=== PATIENT | male | born 1960 | race Caucasian/White ===

== ENCOUNTER 2018-09-17 10:48 | Inpatient (IN) | payer OTHER ==
[2018-09-17] VITALS (20 sets, daily range): BP systolic 96–130; BP diastolic 37–76
[~2018-09-17] VITALS: Ht 180.3 cm; Wt 65.2 kg
[2018-09-17 11:11] LABS: HEMATOCRIT 56.2 % (42.0-52.0); HEMOGLOBIN 15.6 gm/dL (14.0-18.0); MCH 31.7 pg (26.0-34.0); MCHC 27.8 g/dL (28.0-37.0); MCV 114.1 fL (80.0-100.0); PLATELET COUNT 306 thou/uL (150-400); RBC 4.92 mil/uL (4.50-6.00); RDW 16.1 % (10.5-14.5); WBC 22.5 thou/uL (4.0-11.0)
[2018-09-17 11:30] LABS: ALBUMIN 3.7 g/dL (3.4-5.0); BUN 57 mg/dL (7-18); CALCIUM 11.3 mg/dL (8.5-10.1); CHLORIDE 93 mmol/L (98-107); DIRECT BILIRUBIN 0.1 mg/dL (<0.1-0.3); SGOT 11 U/L (15-37); SGPT 20 U/L (30-65); SODIUM 136 mmol/L (136-145); TOTAL BILIRUBIN 0.5 mg/dL (<0.1-1.0); TOTAL PROTEIN 7.4 g/dL (6.4-8.2); TROPONIN-I <0.06 ng/mL (<0.06)
[2018-09-17 11:33] LABS: ANION GAP 34 mmol/L (7-16)
[2018-09-17 11:45] LABS: ABSOLUTE NEUTROPHILS 19.1 thou/uL (1.4-8.2); MACROCYTES 2+; METAMYELOCYTES 2 %; PLATELET ESTIMATE NORMAL
[2018-09-17 11:49] LABS: CO2 9 mmol/L (21-32); GLUCOSE 1823 mg/dL (74-106)
[2018-09-17 12:31] LABS: HCO3 3.4 mmol/L (22.0-26.0); PCO2 15.2 mmHg (35.0-45.0); PO2 143.3 mmHg (80.0-100.0); pH 6.964 (7.360-7.450); sO2 97.3 % (92.0-98.0)
[2018-09-17 13:04] LABS: URINE BILIRUBIN NEGATIVE (Negative); URINE BLOOD 1+ (Negative); URINE CLARITY CLEAR; URINE COLOR YELLOW; URINE GLUCOSE-RANDOM* 3+ (Negative); URINE KETONES 2+ (Negative); URINE LEUKOCYTES-REFLEX NEGATIVE (Negative); URINE NITRITE-REFLEX NEGATIVE (Negative); URINE PROTEIN (DIPSTICK) 1+ (Negative); URINE UROBILINOGEN 0.2 E.U./dl (0.2-1.0)
[2018-09-17 13:12] LABS: AMP/METHAMP Negative (Negative); BARBITURATES Negative (Negative); BENZODIAZEPINES Negative (Negative); COCAINE Negative (Negative); METHADONE Negative (Negative); OPIATES Negative (Negative); PCP Negative (Negative)
[2018-09-17 13:14] LABS: CASTS None Seen /LPF (None Seen); CRYSTALS None Seen /LPF (None Seen); HYALINE CASTS 4-10 Moderate /LPF (None Seen); SQUAMOUS 0-3 Few /LPF (0-3)
[2018-09-17 13:15] LABS: AMORPHOUS URATES Many /LPF (None Seen); BACTERIA-REFLEX None Seen /HPF (None Seen); URINE RBC 0-2 Rare /HPF (0-2); URINE WBC-REFLEX 0-5 Rare /HPF (0-5)
[2018-09-17 13:28] LABS: MAGNESIUM 3.9 mg/dL (1.8-2.4)
[2018-09-17 13:43] LABS: PHOSPHORUS 13.8 mg/dL (2.5-4.9)
--- NOTE | 2018-09-17 13:48 | EKG ---
[place] [address] [facility] [address] ELECTROCARDIOGRAM REPORT Name: EULALIO COSTELLO Room #: 170-4 ADM IN M.R.#: [id number] Admission: 09/17/18 Attend Phys: Alan Mullen MD Discharge: Date of : 60 Report #: [id number] THIS REPORT FOR: //name// [facility] ED Test Date: 2018-09-17 Test Time: 12:11:34 Pat Name: EULALIO COSTELLO Department: Room: 170 Gender: M Principal Accounts Clerk: CANDY : 1960 Requested By: Wili Lee Order Number: [id number] MD: Timothy Schumacher Measurements Intervals [place] Rate: 90 P: 74 NE: 167 QRS: 44 QRSD: 100 T: 52 QT: 414 QTc: 507 Interpretive Statements Sinus rhythm LAE, consider biatrial enlargement Minimal ST depression, diffuse leads Prolonged QT interval No previous ECG available for comparison Electronically Signed On 09-17-2018 13:48:31 CDT by Timothy Schumacher [email or web address] <ELECTRONICALLY SIGNED> By: Timothy Schumacher MD 09/17/18 1348 1211 1211 Timothy Schumacher MD /ROBERT
[2018-09-17 14:12] LABS: CALCIUM 9.6 mg/dL (8.5-10.1); CREATININE 2.7 mg/dL (0.7-1.3)
[2018-09-17 14:22] LABS: POTASSIUM 4.8 mmol/L (3.5-5.1)
[2018-09-17 18:48] LABS: CALCIUM 10.5 mg/dL (8.5-10.1); CREATININE 2.4 mg/dL (0.7-1.3); POTASSIUM 4.4 mmol/L (3.5-5.1)
[2018-09-17 22:25] LABS: ALBUMIN 3.5 g/dL (3.4-5.0); CALCIUM 10.8 mg/dL (8.5-10.1); CREATININE 2.2 mg/dL (0.7-1.3); MAGNESIUM 3.2 mg/dL (1.8-2.4); PHOSPHORUS 2.9 mg/dL (2.5-4.9); POTASSIUM 4.9 mmol/L (3.5-5.1)
[2018-09-18] VITALS (34 sets, daily range): BP systolic 105–135; BP diastolic 59–76
[2018-09-18 02:31] LABS: CALCIUM 9.8 mg/dL (8.5-10.1); CREATININE 1.8 mg/dL (0.7-1.3); MAGNESIUM 2.8 mg/dL (1.8-2.4); PHOSPHORUS 2.8 mg/dL (2.5-4.9); POTASSIUM 4.5 mmol/L (3.5-5.1)
[2018-09-18 06:14] LABS: ALBUMIN 2.9 g/dL (3.4-5.0); CALCIUM 9.6 mg/dL (8.5-10.1); CREATININE 1.6 mg/dL (0.7-1.3); MAGNESIUM 2.6 mg/dL (1.8-2.4); PHOSPHORUS 2.7 mg/dL (2.5-4.9)
[2018-09-18 06:15] LABS: POTASSIUM 4.9 mmol/L (3.5-5.1)
[2018-09-18 10:59] LABS: ALBUMIN 2.8 g/dL (3.4-5.0); CALCIUM 9.4 mg/dL (8.5-10.1); CREATININE 1.5 mg/dL (0.7-1.3); MAGNESIUM 2.4 mg/dL (1.8-2.4); PHOSPHORUS 2.9 mg/dL (2.5-4.9); POTASSIUM 3.8 mmol/L (3.5-5.1)
[2018-09-18 14:54] LABS: ALBUMIN 2.5 g/dL (3.4-5.0); CALCIUM 8.8 mg/dL (8.5-10.1); CREATININE 1.2 mg/dL (0.7-1.3); MAGNESIUM 2.2 mg/dL (1.8-2.4); PHOSPHORUS 3.3 mg/dL (2.5-4.9)
[2018-09-18 14:57] LABS: POTASSIUM 4.4 mmol/L (3.5-5.1)
[2018-09-18 17:20] LABS: HEMATOCRIT 45.4 % (42.0-52.0); HEMOGLOBIN 14.9 gm/dL (14.0-18.0); MCH 31.9 pg (26.0-34.0); MCHC 32.8 g/dL (28.0-37.0); RBC 4.66 mil/uL (4.50-6.00); RDW 14.1 % (10.5-14.5)
[2018-09-18 17:21] LABS: MCV 97.4 fL (80.0-100.0); PLATELET COUNT 199 thou/uL (150-400)
[2018-09-18 18:05] LABS: BE(vivo) -6.6 mmol/L (-2 to +3); HCO3 16.3 mmol/L (22.0-26.0); PCO2 26.3 mmHg (35.0-45.0); pH 7.411 (7.360-7.450); sO2 96.2 % (92.0-98.0)
[2018-09-18 18:08] LABS: ALBUMIN 2.5 g/dL (3.4-5.0); CALCIUM 8.9 mg/dL (8.5-10.1); CREATININE 1.3 mg/dL (0.7-1.3); MAGNESIUM 2.2 mg/dL (1.8-2.4); PHOSPHORUS 3.3 mg/dL (2.5-4.9); POTASSIUM 4.5 mmol/L (3.5-5.1)
[2018-09-18 18:11] LABS: ABSOLUTE NEUTROPHILS 12.9 thou/uL (1.4-8.2); METAMYELOCYTES 1 %
[2018-09-18 18:12] LABS: LARGE PLATELETS OCCASIONAL
[2018-09-18 18:14] LABS: ANISOCYTOSIS SLIGHT
[2018-09-18 22:35] LABS: ALBUMIN 2.5 g/dL (3.4-5.0); CALCIUM 8.7 mg/dL (8.5-10.1); CREATININE 1.1 mg/dL (0.7-1.3); MAGNESIUM 2.1 mg/dL (1.8-2.4); PHOSPHORUS 2.5 mg/dL (2.5-4.9); POTASSIUM 3.8 mmol/L (3.5-5.1)
[2018-09-19] VITALS (23 sets, daily range): BP systolic 114–146; BP diastolic 59–83
[2018-09-19 05:36] LABS: ESTIMATED AVERAGE GLUCOSE > 398 mg/dL (()); GLYCOHEMOGLOBIN (HGB A1C) > 15.5 % (4.8-5.6)
[2018-09-19 05:57] LABS: BASOPHILS 0.5 % (0.0-2.0); HEMOGLOBIN 13.6 gm/dL (14.0-18.0); RBC 4.24 mil/uL (4.50-6.00)
[2018-09-19 05:59] LABS: ABSOLUTE NEUTROPHILS 9.7 thou/uL (1.4-8.2); EOSINOPHILS 0.2 % (0.0-3.0); HEMATOCRIT 39.8 % (42.0-52.0); LYMPHOCYTES 13.8 % (24.0-44.0); MCHC 34.1 g/dL (28.0-37.0); MONOCYTES 4.3 % (1.0-8.0); PLATELET COUNT 143 thou/uL (150-400); POLYS 81.2 % (36.0-66.0); RDW 14.3 % (10.5-14.5); WBC 11.9 thou/uL (4.0-11.0)
[2018-09-19 06:07] LABS: CALCIUM 8.5 mg/dL (8.5-10.1); CREATININE 0.9 mg/dL (0.7-1.3); POTASSIUM 3.5 mmol/L (3.5-5.1)
[2018-09-19 06:13] LABS: ALBUMIN 2.4 g/dL (3.4-5.0); TOTAL BILIRUBIN 0.3 mg/dL (<0.1-1.0); TOTAL PROTEIN 5.2 g/dL (6.4-8.2)
[2018-09-19 06:14] LABS: LARGE PLATELETS OCCASIONAL
[2018-09-19 11:01] LABS: ANION GAP 8 mmol/L (7-16); BUN 26 mg/dL (7-18); CALCIUM 8.4 mg/dL (8.5-10.1); CHLORIDE 114 mmol/L (98-107); CHOLESTEROL 167 mg/dL (<200); CO2 25 mmol/L (21-32); CREATININE 0.8 mg/dL (0.7-1.3); GLUCOSE 195 mg/dL (74-106); HDL CHOLESTEROL 38 mg/dL (>40); LDL CHOLESTEROL 102 mg/dL (<100); MAGNESIUM 1.9 mg/dL (1.8-2.4); POTASSIUM 3.1 mmol/L (3.5-5.1); SODIUM 147 mmol/L (136-145); TC:HDL 4.4 Ratio (Not establshd); TRIGLYCERIDE 135 mg/dL (<150); VLDL 27 mg/dL (<40)
[2018-09-20] VITALS (19 sets, daily range): BP systolic 104–154; BP diastolic 51–89
[2018-09-20 05:50] LABS: HEMATOCRIT 35.6 % (42.0-52.0); HEMOGLOBIN 12.2 gm/dL (14.0-18.0); MCH 32.2 pg (26.0-34.0); MCHC 34.4 g/dL (28.0-37.0); MCV 93.6 fL (80.0-100.0); RBC 3.8 mil/uL (4.50-6.00); RDW 13.8 % (10.5-14.5); WBC 11.9 thou/uL (4.0-11.0)
[2018-09-20 06:02] LABS: CALCIUM 8.3 mg/dL (8.5-10.1); CREATININE 0.7 mg/dL (0.7-1.3); MAGNESIUM 1.9 mg/dL (1.8-2.4); POTASSIUM 3.1 mmol/L (3.5-5.1)
[2018-09-21 04:24] VITALS: BP 127/63
[2018-09-21 08:03] VITALS: BP 117/66
[2018-09-21 08:20] LABS: HEMATOCRIT 33.7 % (42.0-52.0); HEMOGLOBIN 11.6 gm/dL (14.0-18.0); MCH 32.4 pg (26.0-34.0); MCHC 34.5 g/dL (28.0-37.0); MCV 93.9 fL (80.0-100.0); RBC 3.58 mil/uL (4.50-6.00); RDW 13.9 % (10.5-14.5); WBC 8.8 thou/uL (4.0-11.0)
[2018-09-21 08:30] LABS: CALCIUM 8.6 mg/dL (8.5-10.1); CREATININE 0.8 mg/dL (0.7-1.3); MAGNESIUM 1.9 mg/dL (1.8-2.4); POTASSIUM 3.4 mmol/L (3.5-5.1)
[2018-09-21 17:17] VITALS: BP 126/65
[2018-09-21 22:30] VITALS: BP 127/80
[2018-09-22 04:50] VITALS: BP 120/76
[2018-09-22 07:32] VITALS: BP 125/76
[2018-09-22] MEDS ORDERED: ACETAMINOPHEN325 M1 PO (12:38)
[2018-09-22] MEDS ORDERED: K-DUR 20 MEQ T20 MEQ PO (12:38)
[2018-09-22] MEDS ORDERED: NOVOLOG100 UNIT/1 SUBQ (12:38)
[2018-09-22] MEDS ORDERED: LEVEMIR SUBQ (12:38)
[2018-09-22] MEDS ORDERED: SYNTHROID50 MCG PO (12:38)
[2018-09-22 13:04] VITALS: BP 125/76
== END 2018-09-22 15:42 | disposition home or self-care (01) | DRG 637 ==
LOC: ER 10:48 → ICU 12:54 → EROBS 12:54 → 4E 12:54 → EROBS 12:54 → ICU 15:38 → ENTRNSPT 09-20 17:59 → 4E 09-20 18:53 → CMPTRNSPT 09-21 09:25 → 4E 09-22 15:42
PROVIDERS: Emergency Medicine; ADMIT Internal Medicine
DX: E11.10 Type 2 diabetes mellitus with ketoacidosis without coma (principal); G92 Toxic encephalopathy; N17.9 Acute kidney failure, unspecified; E87.5 Hyperkalemia; D72.829 Elevated white blood cell count, unspecified; E03.9 Hypothyroidism, unspecified; E11.22 Type 2 diabetes mellitus with diabetic chronic kidney disease; N18.9 Chronic kidney disease, unspecified
CPT/HCPCS: 10078; 10783

== ENCOUNTER 2018-10-15 11:56 | Emergency (ER) | payer OTHER ==
[~2018-10-15] VITALS: Ht 180.3 cm; Wt 68.0 kg
[~2018-10-15 11:56] MED LIST: ACETAMINOPHEN325 M1 PO; K-DUR 20 MEQ T20 MEQ PO; LEVEMIR SUBQ; NOVOLOG100 UNIT/1 SUBQ; SYNTHROID50 MCG PO
[2018-10-15 11:58] VITALS: BP 145/75
[2018-10-15] MEDS ORDERED: ACETAMINOPHEN325 M1 PO (12:10)
[2018-10-15] MEDS ORDERED: NOVOLOG100 UNIT/1 SUBQ (12:10)
[2018-10-15] MEDS ORDERED: SYNTHROID50 MCG PO (12:10)
[2018-10-15] MEDS ORDERED: K-DUR 20 MEQ T20 MEQ PO (12:10)
[2018-10-15] MEDS ORDERED: LEVEMIR SUBQ (12:10)
== END 2018-10-15 12:16 | disposition home or self-care (01) ==
LOC: ER 11:56
DX: Z76.0 Encounter for issue of repeat prescription (principal); E11.9 Type 2 diabetes mellitus without complications